=== PATIENT | female | born 1940 | race Hispanic/Latino ===

== ENCOUNTER → 2024-03-28 | Outpatient (CLI) | payer OTHER | END | disposition home or self-care (01) | LOC: RAH 10:51 | PROVIDERS: ATTEND Family Medicine | DX: M47.816 Spondylosis without myelopathy or radiculopathy, lumbar region (principal); M16.11 Unilateral primary osteoarthritis, right hip; M85.88 Other specified disorders of bone density and structure, other site; M48.07 Spinal stenosis, lumbosacral region; M25.551 Pain in right hip | CPT/HCPCS: 72100; 73502; 73552 ==